=== PATIENT | male | born 1990 | race Caucasian/White ===

== ENCOUNTER 2017-04-07 09:50 | Emergency (ER) | payer BC ==
[~2017-04-07] VITALS: Wt 68.0 kg
[~2017-04-07 09:50] MED LIST: 'PARAFON FORTE500 M1 PO; HYDROCODONE BIT1 T11 PO; NAPROSYN500 MG PO
[2017-04-07] MEDS ORDERED: NAPROSYN500 MG PO (10:29)
[2017-04-07] MEDS ORDERED: KEFLEX500 M1 PO (10:29)
[2017-04-07] MEDS ORDERED: INDOMETHACIN50 MG PO (11:18)
== END 2017-04-07 11:34 | disposition home or self-care (01) ==
LOC: ED 09:50
DX: S61.211A Laceration without foreign body of left index finger without damage to nail, initial encounter (principal); R03.0 Elevated blood-pressure reading, without diagnosis of hypertension; M79.674 Pain in right toe(s); F17.200 Nicotine dependence, unspecified, uncomplicated; W26.0XXA Contact with knife, initial encounter; Y93.89 Activity, other specified; Y92.89 Other specified places as the place of occurrence of the external cause; Y99.8 Other external cause status